=== PATIENT | female | born 1945 | race Caucasian/White ===

== ENCOUNTER 2017-12-26 04:44 | Emergency (ER) | payer MEDICARE, BC ==
[~2017-12-26] VITALS: Ht 167.6 cm; Wt 56.8 kg
[~2017-12-26 04:44] MED LIST: AMOXICILLIN 50500 MG PO; ATARAX 25MG25 MG/TAB PO; CALCIUM 600MG+D1 TAB PO; HIBICLENS4% TP; LEVAQUIN 5500 MG/TA1 PO; LYSINE 500500 MG/TAB PO; MULTIPLE VITAMI1 CAP PO; PROBIOTIC-MAJOR PO
[2017-12-26 04:45] VITALS: TEMP 97.7
[2017-12-26] MEDS ORDERED: ESTRACE0.1 MG/GM VG (04:52)
[2017-12-26] MEDS ORDERED: MACROBID 1100 MG/CAP PO (04:54)
[2017-12-26 05:02] LABS: BASO % 0.5 % (0.0-2.0); EOS # 0.1 (0.0-0.7); EOS % 1.9 % (0-4.0); GRAN # 3.1 (1.4-6.5); GRAN % 48.5 % (42.2-75.2); HEMATOCRIT 42.3 % (37.0-47.0); LYMPH # 2.8 (1.2-3.4); MEAN CELL VOLUME 96 fl (80.0-100.0); MEAN CORPUSCULAR HEMOGLOBIN 32 pg (27.0-31.0); MEAN CORPUSCULAR HGB CONC 33 g/dl (33.0-37.0); MEAN PLATELET VOLUME 8.9 fl (7.4-10.4); MONO # 0.4 (0.1-0.6); MONO % 5.9 % (1.7-9.3); PLATELET COUNT 279 K/mm3 (130-400); RED BLOOD COUNT 4.43 M/mm3 (4.10-5.30); REDCELL DISTRIBUTION WIDTH-CV 12.6 % (11.5-14.5)
[2017-12-26 05:19] LABS: INR 0.9 (0.8-3.0)
[2017-12-26 05:24] LABS: ALANINE AMINOTRANSFERASE 36 U/L (9-52); ALBUMIN 4.3 gm/dL (3.5-5.0); ALKALINE PHOSPHATASE 58 U/L (50-136); ANION GAP 12 mmol/L (7-16); AST,SGOT 35 U/L (15-37); BILIRUBIN,TOTAL 0.2 mg/dL (0.0-1.0); BLOOD UREA NITROGEN 16 mg/dL (7-17); CARBON DIOXIDE 25 mmol/L (22-30); CHLORIDE 102 mmol/L (98-107); CREATININE, serum 0.63 mg/dL (0.52-1.25); GLUCOSE 133 mg/dL (74-106); POTASSIUM 3.5 mmol/L (3.4-5.0); SODIUM 139 mmol/L (137-145); TOTAL PROTEIN 7.1 gm/dL (6.4-8.2)
[2017-12-26 05:42] LABS: COLLECTION METHOD CLEAN CATCH
[2017-12-26 05:49] LABS: MUCOUS Present /lpf; PH 6 (5-8); SQUAMOUS EPITHELIAL None Seen /hpf; URINE APPEARANCE Clear; URINE BACTERIA None Seen /hpf; URINE BILIRUBIN Negative (NEGATIVE); URINE BLOOD Negative (NEGATIVE); URINE COLOR Yellow; URINE GLUCOSE Negative (NEGATIVE); URINE KETONE Negative (NEGATIVE); URINE LEUKOCYTE ESTERASE Negative (NEGATIVE); URINE NITRATE Negative (NEGATIVE); URINE PROTEIN(semi-quant) Negative (NEGATIVE); URINE RBC 0-2 /hpf; URINE UROBILINOGEN Negative (NEGATIVE)
[2017-12-26 05:51] LABS: TROPONIN-I < 0.012 ng/mL (0.000-0.034)
[2017-12-26 10:05] VITALS: BP 108/61; PULSE 71
[2017-12-26] MEDS ORDERED: ZOFRAN ODT4 MG PO (10:08)
== END 2017-12-26 10:09 | disposition home or self-care (01) ==
LOC: COL.ER 04:44
PROVIDERS: Emergency Medicine
DX: R51 Headache (principal); Z98.51 Tubal ligation status; Z90.89 Acquired absence of other organs
CPT/HCPCS: A9585; J2765; J7030

== ENCOUNTER 2020-01-15 07:03 | Emergency (ER) | payer MEDICARE, BC ==
[~2020-01-15] VITALS: Ht 167.6 cm; Wt 54.5 kg
[~2020-01-15 07:03] MED LIST changes: +ESTRACE0.1 MG/GM VG; +MACROBID 1100 MG/CAP PO; +ZOFRAN ODT4 MG PO
[2020-01-15 07:39] LABS: BASO % 0.2 % (0.0-2.0); EOS % 0.5 % (0-4.0); GRAN # 3.2 (1.4-6.5); GRAN % 56.5 % (42.2-75.2); HEMATOCRIT 42.1 % (37.0-47.0); HEMOGLOBIN 14.6 g/dl (12.5-16.0); LYMPH % 35.9 % (20.0-51.0); MEAN CELL VOLUME 93 fl (80.0-100.0); MEAN CORPUSCULAR HEMOGLOBIN 32 pg (27.0-31.0); MEAN CORPUSCULAR HGB CONC 35 g/dl (33.0-37.0); MEAN PLATELET VOLUME 9.1 fl (7.4-10.4); MONO # 0.4 (0.1-0.6); MONO % 6.7 % (1.7-9.3); PLATELET COUNT 278 K/mm3 (130-400); RED BLOOD COUNT 4.53 M/mm3 (4.10-5.30); REDCELL DISTRIBUTION WIDTH-CV 12.4 % (11.5-14.5)
[2020-01-15 07:56] LABS: LIPASE 178 U/L (23-300)
[2020-01-15 08:08] LABS: TROPONIN-I < 0.012 ng/mL (0.000-0.035)
[2020-01-15 08:09] LABS: ALBUMIN 4.3 gm/dL (3.5-5.0); BILIRUBIN,TOTAL 0.9 mg/dL (0.0-1.0); CALCIUM 9.6 mg/dL (8.4-10.2); CREATININE, serum 0.71 (0.52-1.25); POTASSIUM 3.6 mmol/L (3.4-5.0); TOTAL PROTEIN 6.9 gm/dL (6.4-8.2)
[2020-01-15 08:26] LABS: PROTHROMBIN TIME 10.9 SECONDS (9.7-12.8)
[2020-01-15 08:40] LABS: TSH w REFLEX 2.43 uIU/mL (0.465-4.680)
[2020-01-15 10:20] VITALS: BP 138/77; PULSE 74
== END 2020-01-15 10:34 | disposition home or self-care (01) ==
LOC: COL.ER 07:03
PROVIDERS: Emergency Medicine
DX: F41.9 Anxiety disorder, unspecified (principal); R00.2 Palpitations; Z88.2 Allergy status to sulfonamides; Z88.6 Allergy status to analgesic agent
CPT/HCPCS: J2060; J7030